=== PATIENT | female | born 1990 | race Caucasian/White ===

== ENCOUNTER 2020-12-24 05:55 | Inpatient (IN) ==
[2020-12-24] MEDS ORDERED: miSOPROStoL 25 MCG TABLET PO PRN (06:07)
[2020-12-24] MEDS ORDERED: Famotidine 20 MG/2 ML VIAL IVP PRN (06:07)
[2020-12-24] MEDS ORDERED: Ondansetron 4 MG/2 ML VIAL IVP PRN (06:07)
[2020-12-24] MEDS ORDERED: Lidocaine 1% 20 ML MDV INFILT PRN (06:07)
[2020-12-24] MEDS ORDERED: Azithromycin 500 MG in 0.9 % Sodium Chloride 250 ML IVPB PRN (06:07)
[2020-12-24] MEDS ORDERED: Naloxone 0.4 MG/ML INJ IVP PRN (06:07)
[2020-12-24] MEDS ORDERED: *HR* Nalbuphine 10 MG/ML AMPUL IV PRN (06:07)
[2020-12-24] MEDS ORDERED: Metoclopramide 10 MG/2 ML VIAL IVP PRN (06:07)
[2020-12-24] MEDS ORDERED: Ringers Solution, Lactated 1,000 ML IVC SCH (06:15)
[2020-12-24 06:51] LABS: Basophils # 0.1 K/mcL (0.0-0.2); Basophils % 0.5 %; Eosinophils # 0.1 K/mcL (0.0-0.6); Eosinophils % 0.6 %; Hematocrit 35.7 % (35.3-44.9); Hemoglobin 11.6 g/dL (11.5-15.4); Immature Granulocytes % 1.8 % (0-4); Lymphocytes # 1.4 K/mcL (0.6-4.6); Lymphocytes % 12.3 %; Mean Corpuscular HGB Conc 32.5 g/dL (31.6-35.5); Mean Corpuscular Hemoglobin 29.4 pg (28.0-33.3); Mean Corpuscular Volume 90.4 fL (83.0-100.0); Mean Platelet Volume 9.7 fL (9.4-12.4); Monocytes # 0.7 K/mcL (0.0-1.3); Monocytes % 5.8 %; Neutrophils # 9.3 K/mcL (1.6-8.9); Platelet Count 167 K/mcL (140-400); Red Blood Count 3.95 M/mcL (3.82-4.97); Red Cell Distribution Width 13.8 % (11.5-14.5); White Blood Count 11.7 K/mcL (4.3-11.1)
[2020-12-24 07:20] LABS: Influenza A PCR Negative (Negative); Influenza B PCR Negative (Negative); Resp. Syncytial Virus PCR Negative (Negative)
[2020-12-24 07:24] LABS: SARS-CoV-2 by PCR (In House) Negative (Negative)
[2020-12-24] MEDS ORDERED: Ropivacaine/PF 0.2% 20 ML VIAL EP ONE (09:11)
[2020-12-24] MEDS ORDERED: EPHEDrine 50 MG/ML VIAL IVP PRN (09:11)
[2020-12-24] MEDS ORDERED: *HR* FentaNYL (PF) 100 MCG/2 ML VIAL EP ONE (09:11)
[2020-12-24 12:15] LABS: Amphetamine Screen,Urine Negative ng/mL (Cutoff=1000); Barbiturate Screen,Urine Negative ng/mL (Cutoff=200); Benzodiazepines Screen,Urine Negative ng/mL (Cutoff=200); Cannabinoid Screen,Urine Negative ng/mL (Cutoff = 50); Cocaine Screen,Urine Negative ng/mL (Cutoff= 300); Opiate Screen,Urine Negative ng/mL (Cutoff=300); Phencyclidine Screen,Urine Negative ng/mL (Cutoff=25)
[2020-12-24] MEDS: Epidural Premix (fent/bupiv) 110 ML EP SCH ×2 (12:30→18:11)
[2020-12-24] MEDS ORDERED: Oxytocin 20 units/ LR 1000 mL 20 UNIT/1,000 ML BAG IVC SCH (19:45)
[2020-12-25] MEDS ORDERED: Oxytocin 20 units/ LR 1000 mL 20 UNIT/1,000 ML BAG IVC ONE (04:51)
[2020-12-25] MEDS ORDERED: Oxytocin 20 units/ LR 1000 mL 20 UNIT/1,000 ML BAG IVC SCH (04:51)
[2020-12-25] MEDS ORDERED: Lanolin 7 G OINT...G. TP PRN (04:51)
[2020-12-25] MEDS ORDERED: Benzocaine/Menthol 56 GM AEROSOL SPRAY TP PRN (04:51)
[2020-12-25] MEDS ORDERED: Ondansetron ODT 4 MG TAB.RAPDIS SL PRN (04:51)
[2020-12-25] MEDS ORDERED: Rho Immune Globulin 1,500 UNIT SYRINGE IM PRN (04:51)
[2020-12-25] MEDS ORDERED: Measles/Mumps/Rubella Vacc 0.5 ML VIAL SQ PRN (04:51)
[2020-12-25] MEDS: Ibuprofen 600 MG TABLET PO SCH ×3 (05:55→20:20)
[2020-12-25] MEDS: Acetaminophen 325 MG TABLET PO SCH ×3 (05:55→20:20)
[2020-12-25] MEDS ORDERED: Prenatal Vit/FA 1 EACH TABLET PO SCH (09:00)
[2020-12-25 20:32] VITALS: BP 109/68; PULSE 77; TEMP 97.9; O2SAT 99
== END 2020-12-26 05:30 | disposition home or self-care (01) | DRG 807 ==
LOC: 1NENULAB 05:55 → 1NENUOBS 12-25 04:50
PROVIDERS: ADMIT Obstetrics & Gynecology; ATTEND Obstetrics & Gynecology